=== PATIENT | male | born 1945 | race Caucasian/White ===

== ENCOUNTER 2016-12-03 05:33 | Inpatient (IN) | payer OTHER ==
--- NOTE | 2016-12-02 06:43 | PREOPHP ---
DATE OF ADMISSION: 12/03/2016 CHIEF COMPLAINT: Right shoulder pain and limited range of motion. HISTORY OF PRESENT ILLNESS: A 70-year-old male with injury to right shoulder who has failed medical management including oral pain medications and physical therapy, who was scheduled for an elective right shoulder open reverse total shoulder repair for a right shoulder rotator cuff tear and right s houlder osteoarthritis. PAST MEDICAL HISTORY: Hypertension. PAST SURGICAL HISTORY: None. INJURIES: A ground level fall onto his right shoulder causing current injury. ALLERGIES: NO KNOWN DRUG ALLERGIES. MEDICATIONS: He currently takes: 1. Atenolol 25 mg nightly. 2. Losartan 50 mg daily. 3. Tylenol 500 mg q. 8 hours. FAMILY HISTORY: Father is alive at the age of 97 in good health. Mother at the age of 84 secondary to chronic obstructive pulmonary disease. He has 2 brothers and 2 sisters. FAMILY HISTORY: Significant for diabetes and cholesterol. He is , has 1 daughter and 1 son who are both in good health. SOCIAL HABITS: Include ex-tobacco use, quit 20 years ago. States he smoked only 2 cigarettes per d ay. He is an alcohol user, quit approximately 20 years as well. States he would drink 6 beers week ly. Drinks 1 cup of coffee daily. Sleeps about 10 hours nightly, although this is intermittent sec ondary to shoulder pain. REVIEW OF SYSTEMS: HEENT: Decreased hearing, that he states is progressively getting worse. CARDIORESPIRATORY: Asymptomatic. GASTROINTESTINAL: Asymptomatic. GENITOURINARY: History of a varicocele in the left testicle. MUSCULOSKELETAL: Mild low back pain as well as right shoulder pain with limited range of motion wit h a complaint of some numbness in the forearm and hand and neuropsychiatric asymptomatic other than the tingling in the lower right arm. GENERAL: Weight is unchanged. No hair, skin or nail changes. PHYSICAL EXAMINATION: He is awake, alert, and oriented x4, in no acute distress. VITAL SIGNS: Blood pressure 138/60, pulse 84, temperature 98.4. He is 5 feet 4 inches and weighs 1 73 pounds. He is a well-developed, well-nourished male. Pupils equal, round, reactive to light and accommodation. Extraocular muscles are intact. Fundi are grossly normal to an undilated exam. Tympanic membranes are intact. No lesions. Mouth, no lesions. NECK: Supple, trachea midline. Thyroid is not enlarged. No venous distention. No masses. Caroti d pulses are equal without bruits. CHEST: Symmetrical. No axillary masses. LUNGS: Clear to percussion and auscultation. CARDIAC: Shows normal sinus rhythm with no thrills, murmurs, rubs or gallops and without cardiac en largement. ABDOMEN: Soft, nontender, nondistended, no hepatosplenomegaly, no hernias, masses. Normal peristal sis is heard, no bruits are audible. GENITALIA: Normal male. Prostate and rectal exam were deferred. EXTREMITIES: No clubbing, cyanosis or edema. Pulses are equal bilaterally. There is limited range of motion of his right shoulder and arm. SKIN: Normal texture. NEUROLOGICAL: Cranial nerves are intact. Motor intact. Sensory intact. Reflexes are downgoing an d bilaterally equal. LABORATORY DATA: Drawn showing a normal chemistry, normal complete blood count, normal urinalysis w ith some blood but no evidence of infection, no nitrite or leukocyte noted. Protime is not prolonge d with an INR of 0.95. Chest x-ray shows no acute cardiopulmonary findings. EKG shows sinus rhythm , some old T-wave changes that show no acute findings. ASSESSMENT AND PLAN: A 70-year-old male to the right shoulder secondary to a ground level fall, jaclyn led medical management is now scheduled for an elective right shoulder open total shoulder repair. PROBLEM LIST includes hypertension which is decently controlled on current antihypertensive agents. The patient, however, is a low risk candidate for the selected scheduled procedure with selected fo rm of general anesthesia may proceed as planned. Preoperative instructions have been reviewed with the patient. Dictated By: CHRISTIANO GUAJARDO/SHABNAM Conf#: [id number] DID#: [id number]
[~2016-12-03] VITALS: Ht 162.6 cm; Wt 76.3 kg
[2016-12-03] VITALS (26 sets, daily range): BP systolic 85–145; BP diastolic 35–74; PULSE 56–69; RESP 15–34; Ht 162.6 cm; Wt 76.3 kg
[2016-12-03] MEDS ORDERED: CA CHLORIDE 10% 10 ML SYRINGE ONE (06:41)
[2016-12-03] MEDS ORDERED: THROMBIN 5000 UNIT VIAL ONE (06:41)
[2016-12-03] MEDS ORDERED: BUPIVACAINE 0.5%/EPI (SDV) 30 ML INJ ONE (06:41)
[2016-12-03] MEDS ORDERED: POLYMYXIN/BACITRACIN 1L IRRIG ONE (06:42)
[2016-12-03] MEDS: LACTATED RINGER'S 1,000 ML IV* SCH ×3 (06:42→09:07)
[2016-12-03] MEDS ORDERED: BUPIVACAINE 0.5% (SDV) 30 ML, morphine SULFATE (PF) 8 MG, EPINEPHrine 0.3 MG, KETOROLAC... IRR SCH ×7 (07:00)
[2016-12-03] MEDS ORDERED: VANCOMYCIN 1 GM (PMX) 250 ML IVPB ONE (07:00)
[2016-12-03] MEDS ORDERED: VANCOMYCIN 500MG/NS (PMX) 100 ML IVPB SCH ×2 (07:00→09:00)
[2016-12-03] MEDS ORDERED: ROPIVACAINE 0.5 % 30 ML VIAL ONE (07:02)
[2016-12-03] MEDS ORDERED: LIDOCAINE 2% (SDV) 5 ML INJ ONE (07:02)
[2016-12-03] MEDS ORDERED: PROPOFOL 20 ML ONE (07:02)
[2016-12-03] MEDS ORDERED: ATEN-51 PO (07:35)
[2016-12-03] MEDS ORDERED: LOSA50TA6 PO (07:35)
[2016-12-03] MEDS ORDERED: GABAPENTIN 300 MG CAP PO ONE (08:00)
[2016-12-03] MEDS ORDERED: TRANEXAMIC ACID 1,000 MG in SOD CHLORIDE 0.9% 100 ML IVPB ONE (08:00)
[2016-12-03] MEDS ORDERED: oxyCODONE (CR) 10 MG TAB [oxyCONTIN] PO ONE (08:00)
[2016-12-03] MEDS ORDERED: traMADol 50 MG TAB PO ONE (08:00)
[2016-12-03] MEDS ORDERED: DEXAMETHASONE 1 MG TAB PO ONE (08:00)
[2016-12-03] MEDS ORDERED: CEFAZOLIN 2 GM/50 ML (PMX) 50 ML IVPB ONE (08:00)
[2016-12-03] MEDS ORDERED: morphine (1 MG/ML) 10ML SYRINGE IV PRN ×2 (08:30)
[2016-12-03] MEDS ORDERED: MIDAZOLAM 1 MG/ML 2 ML INJ IV PRN (08:30)
[2016-12-03] MEDS ORDERED: hydrALAzine 20 MG INJ IV PRN (08:30)
[2016-12-03] MEDS ORDERED: LABETALOL HCL 20MG INJ IV PRN (08:30)
[2016-12-03] MEDS ORDERED: HYDROmorphONE (0.2 MG/ML) 10ML SYG IV PRN ×2 (08:30)
[2016-12-03] MEDS ORDERED: METOCLOPRAMIDE 10 MG INJ IV PRN (08:30)
[2016-12-03] MEDS ORDERED: FENTAnyl 50 MCG/ML VIAL IV PRN ×2 (08:30)
[2016-12-03] MEDS ORDERED: DIPHENHYDRAMINE 50 MG INJ IV PRN ×2 (08:30→09:00)
[2016-12-03] MEDS ORDERED: EPHEDrine SULFATE 50 MG/5 ML SYG IV PRN (08:30)
[2016-12-03] MEDS ORDERED: MEPERIDINE 25 MG INJ IV PRN (08:30)
[2016-12-03] MEDS ORDERED: ONDANSETRON 4 MG INJ IV PRN ×2 (08:30→09:00)
--- NOTE | 2016-12-03 08:54 | HPN ---
Date/Time of Note Date/Time of Note DATE: 12/03/16 TIME: 08:53 Interval H&P Admission Note Pt. seen H&P reviewed: No system changes DORA REYES MD Dec 03, 2016 08:54
--- NOTE | 2016-12-03 08:55 | PDOCDIS ---
Discharge Instructions DIAGNOSIS Discharge Diagnosis: Shoulder arthritis CONDITION Patient Condition: Good HOME CARE INSTRUCTIONS: Diet Instructions: Regular ACTIVITY: Activity Restrictions: Slowly Increase Activity Keep Limb Elevated Bathing Restrictions: Shower FOLLOW UP/APPOINTMENTS Appointments Two weeks SCHOOL/WORK RELEASE May return to School/Work with: With Restrictions School/Work Release Comment: five pound table top usage for six weeks DORA REYES MD Dec 03, 2016 08:55
[2016-12-03] MEDS ORDERED: ACETAMINOPHEN 500 MG TAB PO PRN (09:00)
[2016-12-03] MEDS ORDERED: OXYCODONE/ACETAMINOPHEN (5/325) TAB PO PRN ×2 (09:00)
[2016-12-03] MEDS ORDERED: MAGNESIUM HYDROXIDE 30ML CUP PO PRN (09:00)
[2016-12-03] MEDS ORDERED: morphine 2 MG INJ IV PRN (09:00)
[2016-12-03] MEDS ORDERED: ZOLPIDEM 5 MG TAB PO PRN (09:00)
[2016-12-03] MEDS ORDERED: KETOROLAC 15 MG INJ IV PRN (09:00)
[2016-12-03] MEDS ORDERED: morphine 4 MG/ML VIAL IV PRN (09:00)
[2016-12-03] MEDS ORDERED: TRANEXAMIC ACID 1,000 MG in SOD CHLORIDE 0.9% 100 ML IV SCH (10:00)
--- NOTE | 2016-12-03 10:05 | RADRPT ---
PROCEDURE: XR Shoulder. CLINICAL INDICATION: Postop. Right shoulder arthroplasty TECHNIQUE: Two views of the right shoulder are available for review. COMPARISON: None available FINDINGS: A total right shoulder arthroplasty is in grossly anatomic alignment. Hardware appears intact. The re is no evidence of hardware failure or fracture. There are mild degenerate change of the right ac romioclavicular joint. Subcutaneous gas is identified consistent with recent surgery. IMPRESSION: 1. Total right shoulder arthroplasty in gross anatomic alignment. RPTAT: AA .Gumaro Quevedo MD, MD Date Time Electronically viewed and signed by .Gumaro Quevedo MD, MD on 12/03/2016 10:04 .B/
--- NOTE | 2016-12-03 10:18 | OPR ---
DATE OF OPERATION: 12/03/2016 SURGEON: Dora Reyes MD LICENSED PRACTICAL NURSE INSTRUCTOR: Bulmaro Salgado MD PREOPERATIVE DIAGNOSIS: Right shoulder rotator cuff tear arthropathy. POSTOPERATIVE DIAGNOSES: 1. Right shoulder secondary osteoarthritis. 2. Right shoulder massive of unrepairable rotator cuff tear. 3. Right shoulder acromioclavicular joint arthritis. OPERATION PERFORMED: 1. Right open reverse total shoulder replacement. 2. Right open distal clavicular excision. Cement Car D[employer] surgeon, Bulmaro Salgado MD, was asked to be present at my request as a result of the significa nt surgical complexity associated with this procedure, including positioning of the extremity, manip ulation and protection of the neurovascular structures. In my opinion, the assistance offered by a surgical endoscopist is insufficient and Dr. Salgado should be compensated for his time. PROCEDURE IN DETAIL: Following administration of general endotracheal anesthesia, the patient was p laced in the beach chair position. Right upper extremity was prepped and draped in usual sterile fa shion. A superior and deltopectoral incision was then performed, exposing the superior aspect of the acromioclavicular joint. The AC joint was then incised from medial to lateral detaching the anteri or capsule. Severe arthritic changes were noted. An osteotome was then used to excise 10 mm of the lateral clavicle. Good decompression was obtained at the joint. The joint was irrigated and closed using a #2 suture. Attention then directed to the deltopectoral interval. Conjoined was retracted medially. The super ior rotator cuff was completely deficient. The humeral head was high riding and moderate to severe arthritic changes were noted with peripheral osteophytes. These were cleared. The remaining subsca pularis was detached. A humeral head cut was then made in the appropriate degree of version and inc lination. The humerus was retracted. The peripheral glenoid tissues were resected and the central canal enter ed. The central canal was then prepared for a DePuy base plate. The actual base plate was then imp acted with 4 peripheral screws with very solid fixation. A 36 mm glenosphere was then applied. The humeral shaft was then reamed up to the 12 mm size. A 12 mm component was then impacted into po sition with a 10 mm perforator typist and a 6 mm liner. Solid fixation was obtained. The joint was then irr igated thoroughly, taken through a full range of motion with no evident instability. The joint was thoroughly irrigated, closed using running stitches and a Prineo dressing. A watertig ht closure was then obtained. The patient was then awakened and transported to the recovery room in stable condition. Estimated b lood loss for this procedure was 100 mL. Postoperative x-rays will be obtained in the recovery room . Dictated By: DORA REYES MD CG/NTS Conf#: [id number] DID#: [id number] CC: BULMARO SALGADO MD;*EndCC*
[2016-12-03] MEDS ORDERED: VANCOMYCIN 1 GM in NS 250 ML IVPB SCH (12:30)
[2016-12-03] MEDS: DEXAMETHASONE 2 MG TAB PO SCH ×3 (12:33→23:31)
[2016-12-03 13:18] LABS: POTASSIUM 4.4 mmol/L (3.5-5.1)
[2016-12-03 13:21] LABS: CREATININE 1.03 mg/dl (0.61-1.24)
[2016-12-03 13:22] LABS: CALCIUM 8.3 mg/dl (8.4-10.2)
--- NOTE | 2016-12-03 17:14 | CONS ---
Date/Time of Note Date/Time of Note DATE: 12/03/16 TIME: 16:57 Assessment/Plan Assessment/Plan Problems: (1) Hypertension Status: Chronic Comment: Decent control Qualifiers: Qualified Code: I10 - Essential hypertension (2) Rotator cuff arthropathy Status: Acute Comment: S/P reverse open shoulder replacement. Clinically doing well. Good pain control. Further post operative management and PT per Dr. Fishman Qualifiers: Qualified Code: M12.811 - Rotator cuff arthropathy, right Consultation Date/Type/Reason Admit Date/Time Dec 03, 2016 at 05:33 Date of Consultation: Dec 03, 2016 Type of Consultation: Medicine Reason for Consultation Medical Management Hx of Present Illness 70 year old man with a Right Rotator Cuff Injury sustained after a fall. S/P Right Rotator cuff repair with open reverse shoulder replacement. Constitutional: no complaints Eyes: no complaints ENT: no complaints Respiratory: no complaints Cardiovascular: no complaints Gastrointestinal: no complaints Genitourinary: no complaints Musculoskeletal: no complaints Skin: no complaints Neurologic: no complaints Endocrine: no complaints Lymphatic: no complaints Psychological: no complaints Immunologic: no complaints Past Medical History Medical History: hypertension, other (varicocele) Past Surgical History Past Surgical Hx: other (varicocele surgery) Family History Significant Family History: diabetes, hypertension Social History Alcohol Use: other (former ETOH use) Smoking Status: Former smoker Drug Use: none Other Social History with 2 children Exam/Review of Systems Vital Signs Vitals Vital Signs Date Time Temp Pulse Resp B/P Pulse Ox O2 Delivery O2 Flow Rate FiO2 12/03/16 10:20 58 25 140/54 99 Nasal Cannula 12/03/16 09:11 98.2 Intake and Output 12/02/16 12/02/16 12/03/16 15:00 23:00 07:00 Intake Total 360 ml Balance 360 ml Exam Constitutional: alert, oriented, well developed Psych: no complaints Head: normocephalic Eyes: EOMI, PERRL, nl conjunctiva, nl sclera Neck: non-tender, supple Respiratory: clear to auscultation, normal air movement Cardiovascular: nl pulses, regular rate and rhythm Gastrointestinal: soft Musculoskeletal: other (Right shoulder incision clean and dry. Right arm in immobilizer) Extremities: normal pulses Skin: nl turgor Results Labs and vitals reviewed Result Diagram: 12/03/16 1246 Results 24 hrs Laboratory Tests Test 12/03/16 12:46 Anion Gap 13 Blood Urea Nitrogen 21 H Calcium Level 8.3 L Carbon Dioxide Level 27 Chloride Level 103 Creatinine 1.03 Glucose Level 110 Potassium Level 4.4 Sodium Level 139 Medications Medications Current Medications Atenolol (Tenormin) 25 mg DAILY PO ; Start 12/04/16 at 09:00 Losartan Potassium (Cozaar) 50 mg DAILY PO ; Start 12/04/16 at 09:00 Senna/Docusate Sodium (Senokot-S) 1 tab BID PO ; Start 12/03/16 at 21:00 Simethicone (Mylicon) 80 mg TID PRN PO DISTENSION/GAS/BLOATING; Start 12/03/16 at 09:00 Magnesium Hydroxide (Milk Of Mag) 30 ml BID PRN PO CONSTIPATION; Start at 09:00 Acetaminophen (Tylenol Tab) 1,000 mg Q4H PRN PO TEMP GREATER THAN 100.4F; Start 12/03/16 at 09:00 Dexamethasone (Decadron) 2 mg Q6 PO Last administered on 12/03/16t 12:33; Admin Dose 2 MG; Start 12/03/16 at 12:00; Stop 12/04/16 at 06:01 Gabapentin (Neurontin) 300 mg HS PO ; Start 12/03/16 at 21:00 Oxycodone/ Acetaminophen (Percocet (5/ 325)) 1 tab Q4H PRN PO PAIN LEVEL 1-5; Start 12/03/16 at 09:00 Oxycodone/ Acetaminophen (Percocet (5/ 325)) 2 tab Q4H PRN PO PAIN LEVEL 6-10; Start 12/03/16 at 09:00 Morphine Sulfate (morphine) 2 mg Q2H PRN IV PAIN LEVEL 1-5; Start 12/03/16 at 09:00 Morphine Sulfate (morphine) 4 mg Q4H PRN IV PAIN LEVEL 6-10; Start 12/03/16 at 09:00 Ketorolac Tromethamine (Toradol) 15 mg Q6H PRN IV PAIN; Start 12/03/16 at 09:00 ; Stop 12/06/16 at 08:59 Ondansetron HCl (Zofran Inj) 4 mg Q6H PRN IV NAUSEA AND/OR VOMITING; Start at 09:00 Diphenhydramine HCl (Benadryl) 25 mg Q6H PRN IV PRURITUS; Start 12/03/16 at 09: 00 Aspirin 81 mg 81 mg DAILY PO ; Start 12/04/16 at 09:00 Vancomycin HCl (Vancocin) 100 ml @ 100 mls/hr Q12H IVPB ; Start 12/03/16 at 17: 00 CHRISTIANO RODARTE MD Dec 03, 2016 17:08
[2016-12-03] MEDS: VANCOMYCIN 500MG/NS (PMX) 100 ML IVPB SCH (18:12)
[2016-12-03] MEDS ORDERED: GABAPENTIN 300 MG CAP PO SCH (21:00)
[2016-12-03] MEDS: SENNA/DOCUSATE NA (8.6MG/50MG) TAB PO SCH (21:18)
[2016-12-04] MEDS: DEXAMETHASONE 2 MG TAB PO SCH (05:01)
[2016-12-04] MEDS: VANCOMYCIN 500MG/NS (PMX) 100 ML IVPB SCH (05:01)
[2016-12-04 05:06] VITALS: BP 126/59; PULSE 61; RESP 17
--- NOTE | 2016-12-04 06:49 | PN ---
Date/Time of Note Date/Time of Note DATE: 12/04/16 TIME: 06:48 24 hour Interval Summary Patient is awake and alert with no significant problems. He is very comfortable. Physical examination: His wound is clean and dry. He is neurologically intact. There are no signs of DVT. Impression: Status post reverse total shoulder Plan: He will begin physical therapy this morning discharge after that. Physical Exam Vital Signs Date Time Temp Pulse Resp B/P Pulse Ox O2 Delivery O2 Flow Rate FiO2 12/04/16 05:06 97.8 61 17 126/59 93 Room Air Intake and Output 12/03/16 12/03/16 12/04/16 15:00 23:00 07:00 Intake Total 300 ml 860 ml 500 ml Output Total 20 ml 400 ml 400 ml Balance 280 ml 460 ml 100 ml VTE Prophylaxis VTE Prophylaxis Intervention: anti-embolic stocking Lines/Catheters IV Catheter Type: Saline Lock Reilly in Place: No Results Result Diagram: 12/03/16 1246 Results 24hrs Laboratory Tests Test 12/03/16 12:46 Anion Gap 13 Blood Urea Nitrogen 21 H Calcium Level 8.3 L Carbon Dioxide Level 27 Chloride Level 103 Creatinine 1.03 Glucose Level 110 Potassium Level 4.4 Sodium Level 139 Assessment/Plan Chief Complaint/Hosp Course 70 year old man with a Right Rotator Cuff Injury sustained after a fall. S/P Right Rotator cuff repair with open reverse shoulder replacement. Problems: Medications Medications Home Meds Reported Medications Losartan Potassium* (Losartan Potassium*) 50 Mg Tablet, 50 MG PO DAILY, TAB 12/03/16 Atenolol* (Atenolol*) 25 Mg Tablet, 25 MG PO DAILY, #30 TAB 12/03/16 DORA REYES MD Dec 04, 2016 06:49
--- NOTE | 2016-12-04 06:50 | DS ---
Date/Time of Note Date/Time of Note DATE: 12/04/16 TIME: 06:49 Discharge Summary Admission/Discharge Info Admit Date/Time Dec 03, 2016 at 05:33 Discharge Date/Time December 04, 2016 following physical therapy Final Diagnosis Right shoulder secondary osteoarthritis with massive unrepairable rotator cuff tear Patient Condition: Good Procedures Right reverse total shoulder replacement Hx of Present Illness Pain and stiffness for several years. Hospital Course 70 year old man with a Right Rotator Cuff Injury sustained after a fall. S/P Right Rotator cuff repair with open reverse shoulder replacement. He underwent a reverse total shoulder replacement. He was observed overnight and went home following physical therapy the next morning. Home Meds Reported Medications Losartan Potassium* (Losartan Potassium*) 50 Mg Tablet, 50 MG PO DAILY, TAB 12/03/16 Atenolol* (Atenolol*) 25 Mg Tablet, 25 MG PO DAILY, #30 TAB 12/03/16 Pending Labs Laboratory Tests Test 12/03/16 12:46 Anion Gap 13 (8-16) Blood Urea Nitrogen 21mg/dl (7-20) Calcium Level 8.3mg/dl (8.4-10.2) Carbon Dioxide Level 27mmol/L (21-31) Chloride Level 103mmol/L (97-110) Creatinine 1.03mg/dl (0.61-1.24) Glucose Level 110mg/dl (70-220) Potassium Level 4.4mmol/L (3.5-5.1) Sodium Level 139mmol/L (135-144) DORA REYES MD Dec 04, 2016 06:50
[2016-12-04 08:09] VITALS: BP 130/59; RESP 18
[2016-12-04] MEDS ORDERED: ASPIRIN 81 MG TAB PO SCH (09:00)
[2016-12-04] MEDS ORDERED: LOSARTAN 50 MG TAB PO SCH (09:00)
[2016-12-04] MEDS ORDERED: ATENOLOL 25 MG TAB PO SCH (09:00)
[2016-12-04] MEDS: SENNA/DOCUSATE NA (8.6MG/50MG) TAB PO SCH (09:31)
== END 2016-12-04 10:10 | disposition home or self-care (01) | DRG 483 ==
LOC: REC 05:33 → MS1 11:15
PROVIDERS: ADMIT Orthopaedic Surgery; ATTEND Orthopaedic Surgery
PROC: 0PB90ZZ Excision of Right Clavicle, Open Approach (ICD-10-PCS; 2016-12-03)
PROC: 0RRJ00Z Replacement of Right Shoulder Joint with Reverse Ball and Socket Synthetic Substitute, Open Approach (ICD-10-PCS; principal; 2016-12-03 07:00)
DX: M19.211 Secondary osteoarthritis, right shoulder (principal); I10 Essential (primary) hypertension; Z87.891 Personal history of nicotine dependence; M75.101 Unspecified rotator cuff tear or rupture of right shoulder, not specified as traumatic; M19.011 Primary osteoarthritis, right shoulder
CPT/HCPCS: 80048; 86999; 97166; Z7610; C1776; J0171; J0735; J1885; J2274; J2795; J3370